=== PATIENT | male | born 1955 | race Caucasian/White ===

== ENCOUNTER 2021-05-12 09:06 | Outpatient (CLI) | payer BC | END 2021-05-12 09:07 | disposition home or self-care (01) | LOC: CSHMRI 09:06 | PROVIDERS: ATTEND Family Medicine | DX: M25.552 Pain in left hip (principal); M25.551 Pain in right hip; M87.9 Osteonecrosis, unspecified; M84.352A Stress fracture, left femur, initial encounter for fracture; S73.191A Other sprain of right hip, initial encounter; M47.816 Spondylosis without myelopathy or radiculopathy, lumbar region; G12.9 Spinal muscular atrophy, unspecified; M71.38 Other bursal cyst, other site ==